=== PATIENT | female | born 1970 | race Caucasian/White ===

== ENCOUNTER 2017-05-09 05:38 | Inpatient (IN) | payer BC ==
[2017-05-07 15:12] VITALS: BP 148/97
[2017-05-07 16:46] LABS: BLOOD UREA NITROGEN 8 mg/dL (7-18)
[2017-05-07 16:51] LABS: ASPARTATE AMINO TRANSFERASE 19 U/L (15-37)
[~2017-05-09] VITALS: Ht 167.6 cm; Wt 121.0 kg
[~2017-05-09 05:38] MED LIST: DULO20CA45 PO; METH20TA PO
[2017-05-09] MEDS ORDERED: LACTATED RINGERS 1,000 ML IV SCH (06:26)
[2017-05-09] MEDS ORDERED: LIDOCAINE 1%, 2ML SQ PRN (06:30)
[2017-05-09] MEDS ORDERED: NEOSPORIN OINT, 15GM ONE (06:46)
[2017-05-09] MEDS ORDERED: BUPIVACAINE/PF-EPI 0.5% 1:200K ONE (06:46)
[2017-05-09] MEDS ORDERED: THROMBIN 5,000 UNIT VIAL TP ONE (06:46)
[2017-05-09] MEDS ORDERED: MIDAZOLAM 1 MG/ML, 2ML ONE (06:55)
[2017-05-09] MEDS ORDERED: FENTANYL PF 250 MCG/5ML ONE (06:55)
[2017-05-09] MEDS ORDERED: PLEASE ENTER ALLERGIES MC SCH ×2 (08:00)
[2017-05-09] MEDS ORDERED: morphine SULFATE 10 MG/ML, 1ML IVPush PRN (08:00)
[2017-05-09] MEDS ORDERED: ONDANSETRON 2MG/ML, 2ML IVPush PRN ×2 (08:00→08:30)
[2017-05-09] MEDS ORDERED: BISACODYL 10 MG SUPP PR PRN (08:00)
[2017-05-09] MEDS ORDERED: DIPHENHYDRAMINE 50 MG/ML, 1ML IVPush PRN (08:00)
[2017-05-09] MEDS ORDERED: MAGNESIUM HYDROXIDE 8%, 30ML UDC PO PRN (08:00)
[2017-05-09] MEDS ORDERED: SENNA/DOCUSATE TABLET PO PRN (08:00)
[2017-05-09] MEDS ORDERED: PHARMACY MAY ADJ FOR RENAL FX MC PRN (08:00)
[2017-05-09] MEDS ORDERED: MEPERIDINE/PF 25MG/0.5ML IVPush PRN (08:30)
[2017-05-09] MEDS ORDERED: OXYcodone 5 MG/5 ML ORAL.SOL UDC PO PRN (08:30)
[2017-05-09] MEDS ORDERED: ACETAMINOPHEN 325 MG TABLET PO PRN (08:30)
[2017-05-09] MEDS ORDERED: LABETALOL 5MG/ML, 20ML IV PRN (08:30)
[2017-05-09] MEDS ORDERED: hydrALAzine 20 MG/ML, 1ML IV PRN (08:30)
[2017-05-09] MEDS ORDERED: PROMETHAZINE 25 MG/ML, 1ML IV PRN (08:30)
[2017-05-09] MEDS ORDERED: METHYLPHENIDATE 10 MG TABLET PO SCH (09:00)
[2017-05-09] MEDS ORDERED: DULOXETINE 20 MG CAPSULE.DR PO SCH (09:00)
[2017-05-09] MEDS ORDERED: FENTANYL PF 100 MCG/2ML ONE ×2 (10:00→11:03)
[2017-05-09] MEDS ORDERED: HYDROmorphone 1 MG/ML, 1ML ONE ×2 (10:00→10:35)
[2017-05-09] MEDS: HYDROmorphone 1 MG/ML, 1ML IV PRN ×5 (10:10→11:10)
[2017-05-09] MEDS: FENTANYL PF 100 MCG/2ML IV PRN ×3 (10:15→11:05)
[2017-05-09] MEDS: DIAZEPAM 5 MG/ML, 2ML IV PRN ×3 (10:30→11:15)
[2017-05-09] MEDS ORDERED: DIAZEPAM 5 MG/ML, 2ML ONE (10:46)
[2017-05-09] MEDS: OXYcodone/APAP 5/325MG TABLET PO PRN ×3 (14:13→22:33)
[2017-05-09] MEDS: METHOCARBAMOL 750 MG TABLET PO PRN ×2 (14:13→22:32)
[2017-05-09 14:17] VITALS: BP 128/78
[2017-05-09] MEDS: D5%-0.9% NACL+KCL 20MEQ 1,000 ML IV SCH ×2 (15:29→18:00)
[2017-05-09] MEDS: CEFAZOLIN PMX 1GM/50ML 50 ML IVPB SCH ×2 (15:30→23:54)
[2017-05-09] MEDS ORDERED: ROCURONIUM 10 MG/ML ONE (15:35)
[2017-05-09] MEDS ORDERED: DEXAMETHASONE 4 MG/ML, 5ML ONE (15:35)
[2017-05-09] MEDS ORDERED: CEFAZOLIN 1,000 MG ONE (15:35)
[2017-05-09] MEDS ORDERED: SUCCINYLCHOLINE 20 MG/ML, 10ML ONE (15:35)
[2017-05-09] MEDS ORDERED: ONDANSETRON 2MG/ML, 2ML ONE (15:35)
[2017-05-09] MEDS ORDERED: PROPOFOL 10 MG/ML, 20ML ONE (15:35)
[2017-05-09 19:55] VITALS: BP 127/70
[2017-05-10 00:28] VITALS: BP 125/73
[2017-05-10] MEDS: OXYcodone/APAP 5/325MG TABLET PO PRN ×3 (02:28→10:56)
[2017-05-10] MEDS: D5%-0.9% NACL+KCL 20MEQ 1,000 ML IV SCH (02:28)
[2017-05-10 04:10] VITALS: BP 129/81
[2017-05-10] MEDS: METHOCARBAMOL 750 MG TABLET PO PRN (06:34)
[2017-05-10 06:58] VITALS: BP 111/67
[2017-05-10] MEDS ORDERED: DULOXETINE 20 MG CAPSULE.DR PO SCH (09:00)
[2017-05-10] MEDS ORDERED: METHYLPHENIDATE 10 MG TABLET PO SCH (09:00)
[2017-05-10 12:55] VITALS: BP 126/69
== END 2017-05-10 14:37 | disposition home or self-care (01) | DRG 473 ==
LOC: ORIP 05:38 → 4NOR 14:12 → DCLOUNGE 05-10 14:10
PROVIDERS: ADMIT Orthopaedic Surgery Orthopaedic Surgery of the Spine; ATTEND Orthopaedic Surgery Orthopaedic Surgery of the Spine
PROC: 0RB30ZZ Excision of Cervical Vertebral Disc, Open Approach (ICD-10-PCS; 2017-05-09)
PROC: 01N10ZZ Release Cervical Nerve, Open Approach (ICD-10-PCS; 2017-05-09)
PROC: 4A11X4G Monitoring of Peripheral Nervous Electrical Activity, Intraoperative, External Approach (ICD-10-PCS; 2017-05-09)
PROC: 0RG20A0 Fusion of 2 or more Cervical Vertebral Joints with Interbody Fusion Device, Anterior Approach, Anterior Column, Open Approach (ICD-10-PCS; principal; 2017-05-09 07:30)
DX: M48.02 Spinal stenosis, cervical region (principal); E66.01 Morbid (severe) obesity due to excess calories; Z68.39 Body mass index [BMI] 39.0-39.9, adult; Z91.048 Other nonmedicinal substance allergy status
CPT/HCPCS: 36415; 71020; 72040; 80053; 81001; 85025; 86850; 86900; 93005; 95938; 95941; C1713; J0690; J1100; J1170; J2250; J2405; J2704; J3010; J3360; J3490; J0330; J3480; J7120